=== PATIENT | male | born 1960 | race African-American/Black ===

== ENCOUNTER 2017-09-25 18:50 | Emergency (ER) | payer MEDICARE, MEDICAID ==
[2017-09-25] MEDS ORDERED: Lidocaine 1% PF 5 ML VIAL ONE (19:55)
[2017-09-25] MEDS ORDERED: Cephalexin 250 MG CAP ONE (19:56)
[2017-09-25] MEDS ORDERED: Sulfameth/Trimethoprim DS 800-160mg TAB ONE (19:56)
== END 2017-09-25 20:32 | disposition home or self-care (01) ==
LOC: ERS 18:50
DX: L03.011 Cellulitis of right finger (principal); I10 Essential (primary) hypertension; E11.9 Type 2 diabetes mellitus without complications; E78.5 Hyperlipidemia, unspecified
CPT/HCPCS: 10060; J2001

== ENCOUNTER 2018-10-06 13:40 | Emergency (ER) | payer MEDICARE, MEDICAID ==
[2018-10-06 14:20] LABS: #Eosinphils 0.2 thou/uL (0.0-0.7); #Lymphocytes 1.7 thou/uL (1.20-3.40); #Monocytes 0.5 thou/uL (0.11-0.59); #Neutrophils 2.6 thou/uL (1.40-6.50); %Basophils 0.1 % (0.0-1.0); %Eosinophils 3.9 % (0.0-10.0); %Lymphocytes 33.4 % (21.0-51.0); %Neutrophils 52.6 % (42.0-75.0); Hemoglobin 13.8 g/dL (14.0-18.0); Mean Corpuscular HGB CONC 33.7 g/dL (32.0-36.0); Mean Corpuscular Hemoglobin 25.9 pg (27.0-31.0); Mean Platelet Volume 7.9 fL (7.4-10.4); Platelet Count 232 thou/uL (130-400); Red Blood Cell (RBC) Count 5.32 mill/uL (4.70-6.10)
[2018-10-06 14:42] LABS: ALT (SGPT) 24 U/L (8-55); AST (SGOT) 14 U/L (5-34); Albumin 4.4 g/dL (3.5-5.0); Alkaline Phosphatase 128 U/L (40-150); Anion Gap 13 mmol/L (10-20); BUN (Urea Nitrogen) 19 mg/dL (8.4-25.7); Bilirubin, Total 0.7 mg/dL (0.2-1.2); Calc. Creatinine Clearance 0 mL/min (70-130); Calcium 9.9 mg/dL (7.8-10.44); Carbon Dioxide 27 mmol/L (22-29); Chloride 103 mmol/L (98-107); Estimated GFR-MDRD 66; Glucose 263 mg/dL (70-105); Potassium 4.7 mmol/L (3.5-5.1); Protein, Total 7.4 g/dL (6.0-8.3); Sodium 138 mmol/L (136-145)
== END 2018-10-06 17:44 | disposition home or self-care (01) ==
LOC: ERS 13:40
DX: E11.65 Type 2 diabetes mellitus with hyperglycemia (principal); E78.00 Pure hypercholesterolemia, unspecified; I10 Essential (primary) hypertension; Z79.4 Long term (current) use of insulin; Z79.899 Other long term (current) drug therapy
CPT/HCPCS: 36415; 36416; 80053; 85025; 96360

== ENCOUNTER 2018-10-10 17:00 | Observation (INO) | payer MEDICARE, MEDICAID ==
--- NOTE | 2018-10-10 17:22 | RAD ---
EXAM: Chest one view: HISTORY: Chest pain COMPARISON: 06/21/2012 FINDINGS: Heart size: Within normal limits. The lungs: Clear of acute process. No evidence for pneumonia, pleural effusion, acute edema, or pneumothorax, or other significant acute process. IMPRESSION: No significant acute intrathoracic disease.
[2018-10-10 17:42] LABS: #Eosinphils 0.2 thou/uL (0.0-0.7); #Lymphocytes 1.6 thou/uL (1.20-3.40); #Monocytes 0.5 thou/uL (0.11-0.59); #Neutrophils 2.7 thou/uL (1.40-6.50); %Basophils 0.1 % (0.0-1.0); %Monocytes 9.3 % (0.0-10.0); %Neutrophils 54.5 % (42.0-75.0); Mean Corpuscular HGB CONC 34.3 g/dL (32.0-36.0); Mean Corpuscular Hemoglobin 26.3 pg (27.0-31.0); Mean Corpuscular Volume 76.5 fL (78.0-98.0); Mean Platelet Volume 7.7 fL (7.4-10.4); Platelet Count 243 thou/uL (130-400); Red Blood Cell (RBC) Count 5.31 mill/uL (4.70-6.10)
[2018-10-10 18:11] LABS: ALT (SGPT) 27 U/L (8-55); AST (SGOT) 16 U/L (5-34); Albumin 4.5 g/dL (3.5-5.0); Alkaline Phosphatase 148 U/L (40-150); Anion Gap 13 mmol/L (10-20); BUN (Urea Nitrogen) 19 mg/dL (8.4-25.7); Bilirubin, Total 0.6 mg/dL (0.2-1.2); CK (CPK) 119 U/L (30-200); Calc. Creatinine Clearance 0 mL/min (70-130); Calcium 9.4 mg/dL (7.8-10.44); Carbon Dioxide 24 mmol/L (22-29); Chloride 102 mmol/L (98-107); Estimated GFR-MDRD 68; Globulin 2.7 g/dL (2.4-3.5); Glucose 283 mg/dL (70-105); Lipase 46 U/L (8-78); Potassium 4.4 mmol/L (3.5-5.1); Protein, Total 7.2 g/dL (6.0-8.3); Sodium 135 mmol/L (136-145)
[2018-10-10] MEDS ORDERED: Aspirin Chewable 81 MG TAB ONE (19:06)
[2018-10-10 20:38] VITALS: BMI 27.2
[2018-10-10] MEDS ORDERED: Morphine 2 MG/ML SYRINGE SLOW IVP PRN (20:45)
[2018-10-10 21:52] LABS: Troponin I Less than 0.010 ng/mL (< 0.028)
[2018-10-11 00:10] LABS: Troponin I Less than 0.010 ng/mL (< 0.028)
[2018-10-11] MEDS ORDERED: Ondansetron ODT 4 MG TAB PO PRN (01:02)
[2018-10-11] MEDS ORDERED: Ondansetron PF 4 MG/2 ML Vial IVP PRN (01:02)
[2018-10-11] MEDS ORDERED: HumaLOG 300 UNITS/3 ML VIAL SC PRN ×2 (01:05)
[2018-10-11] MEDS ORDERED: Dextrose 50% Abboject 50 ML SYRINGE SLOW IVP PRN (01:05)
[2018-10-11] MEDS ORDERED: Dextrose 5% in Water 1,000 ML IV PRN (01:05)
[2018-10-11] MEDS: Sodium Chloride 0.9% 1,000 ML IV SCH ×3 (02:15→20:59)
[2018-10-11 04:55] LABS: #Eosinphils 0.2 thou/uL (0.0-0.7); #Lymphocytes 1.6 thou/uL (1.20-3.40); #Monocytes 0.4 thou/uL (0.11-0.59); #Neutrophils 2.1 thou/uL (1.40-6.50); %Basophils 0.9 % (0.0-1.0); %Eosinophils 4.1 % (0.0-10.0); %Lymphocytes 36.6 % (21.0-51.0); %Neutrophils 48.5 % (42.0-75.0); Hemoglobin 13.5 g/dL (14.0-18.0); Mean Corpuscular HGB CONC 33.9 g/dL (32.0-36.0); Mean Corpuscular Volume 76.8 fL (78.0-98.0); Platelet Count 223 thou/uL (130-400); RBC Distribution Width 13.9 % (11.5-14.5); White Blood Cell (WBC) Count 4.3 thou/uL (4.8-10.8)
--- NOTE | 2018-10-11 04:58 | PDOC.EVN ---
Event Note - Event Note Event Note: H&P dictation: [id number]
[2018-10-11 05:17] LABS: Anion Gap 12 mmol/L (10-20); BUN (Urea Nitrogen) 14 mg/dL (8.4-25.7); Calc. Creatinine Clearance 107 mL/min (70-130); Calcium 9.8 mg/dL (7.8-10.44); Carbon Dioxide 27 mmol/L (22-29); Chloride 102 mmol/L (98-107); Cholesterol 151 mg/dl (< 200 Desired); Estimated GFR-MDRD Greater than 90; Glucose 210 mg/dL (70-105); HDL Cholesterol 25 mg/dL (>60 Neg Risk); LDL Cholesterol, Calculated 103 mg/dL; Magnesium 2.3 mg/dL (1.6-2.6); Potassium 4.2 mmol/L (3.5-5.1); Sodium 137 mmol/L (136-145); Triglycerides 117 mg/dL (Less than 150)
--- NOTE | 2018-10-11 06:36 | HP ---
CHIEF COMPLAINT: Chest pain. HISTORY OF PRESENT ILLNESS AND REVIEW OF SYSTEMS: Mr. Duron is a 57-year-old man who is noncommunicative at baseline due to underlying learning disability who presents after complaining of chest pain. According to his sister, she received the call while she was at work from another sister who was with him at home due to him clutching to the left side of his chest. When asked if he was experiencing any pain, he stated yes. Difficulty obtaining history from the patient. He is able to nod yes or shake his head no in response to questions, but sister is not 100% convinced he truly understands or is answering appropriately. Unclear how long the pain lasted, but it may have been anywhere from 2 to 3 hours. Unclear if it is intermittent or the type of pain at once. Per family, when the pain first started, he was having some shortness of breath, but that settled quickly. He has not had any further apparent respiratory distress. At this present time, the patient is resting comfortably in bed and denies any pain. Sister denies any nausea or vomiting. No fevers, chills, or sweats. No apparent abdominal pain. He is moving his bowels as normal and urinating as normal. PAST MEDICAL HISTORY: 1. Underlying learning disability. 2. Type 2 diabetes, on insulin. 3. Hyperlipidemia. 4. Hypertension. PAST SURGICAL HISTORY: None. SOCIAL HISTORY: Patient lives with his sister. No alcohol use, drug use, or tobacco use. ALLERGIES: NO KNOWN DRUG ALLERGIES. CURRENT MEDICATIONS: 1. Gemfibrozil. 2. Nexium. 3. Metoprolol. 4. Humalog. 5. Levemir. PHYSICAL EXAMINATION: GENERAL: Patient appears well developed, well nourished, in no acute distress. VITAL SIGNS: Temperature 98.8, pulse 57, respirations 12, O2 saturation 97% on room air, and blood pressure 121/67. HEENT: Normocephalic and atraumatic. Pupils are equal, round, and reactive to light. Extraocular movements intact. Oropharynx is clear. NECK: Supple. LUNGS: Clear to auscultation bilaterally. CARDIAC: Regular rate and rhythm. ABDOMEN: Obese, nontender, and nondistended. Normoactive bowel sounds present. EXTREMITIES: No lower leg swelling or edema. NEUROLOGIC: Patient is nonverbally communicative at baseline. Able to follow commands. SKIN: No rash or jaundice. LABORATORY DATA: White blood count 5, hemoglobin 14, hematocrit 40.6, and platelets 243. D-dimer negative. Sodium 135, potassium 4.4, BUN 19, creatinine 1.33, GFR 68, and glucose 283. LFTs unremarkable. Lipase normal. Troponin negative x2. Albumin 4.5. IMAGING DATA: Chest x-ray, 10/10/2018. No significant acute intrathoracic disease. IMPRESSION AND PLAN: Mr. Duron is a 57-year-old male who is not communicative at baseline due to underlying learning disability, who has been referred for management of the followin. Chest pain. Difficulty obtaining history given the fact he is not communicative. The patient does not appear to be in any pain at this present time and does deny pain. Continue to trend troponins. We will order a stress test. D-dimer is negative. Continue to monitor. 2. Hypertension. Resume home medications. Monitor blood pressure. 3. Diabetes mellitus. Insulin sliding scale initiated. Continue to monitor glucose. 4. Hyperlipidemia. Resume home medications. 5. Gastrointestinal prophylaxis. 6. Deep venous thrombosis prophylaxis with mechanical SCDs. 7. Code status full. His surrogate decision maker is his sister, Mansi Duron. Patient's case to be discussed with attending for further recommendations. Job ID: [id number]
[2018-10-11] MEDS: Gemfibrozil 600 MG TAB PO SCH ×2 (10:46→16:12)
[2018-10-11] MEDS: Famotidine/PF 20 mg/2ml Vial SLOW IVP SCH ×2 (10:46→20:54)
--- NOTE | 2018-10-11 14:29 | NM ---
NUCLEAR MEDICINE CARDIAC STRESS WITH EJECTION FRACTION AND WALL MOTION: HISTORY: Chest pain. FINDINGS: Patient's EKG had 4 second pauses, as per the nuclear fuels research engineer. Therefore, the examination was t erminated and only rest images were performed. Rest images demonstrate distribution of the radiotracer in the left ventricle. IMPRESSION: Incomplete evaluation due to only rest imaging being performed. The examination was terminated as per the weave defect charting clerk's request. POS: TASH
--- NOTE | 2018-10-11 15:25 | CON ---
DATE OF CONSULTATION: 10/11/2018 REASON FOR CONSULTATION: Bradycardia. HISTORY OF PRESENT ILLNESS: Mr. Duron is a pleasant 57-year-old nonverbal gentleman, who comes to the hospital for chest pain. His sister usually takes care of him who is here with him. He had chest pain and was scheduled to have a stress test earlier this morning. He had an episode of sinus pauses at about 5:00 a.m. this morning of the 4 second pause. Secondary to this, the stress was halted and Cardiology was consulted. Currently, he is pain free. PAST MEDICAL HISTORY: 1. Learning disability. 2. Type 2 diabetes, on insulin. 3. Hyperlipidemia. 4. Hypertension. PAST SURGICAL HISTORY: None. SOCIAL HISTORY: Lives with sister. No alcohol, tobacco, or drugs. ALLERGIES: NO KNOWN DRUG ALLERGIES. OUTPATIENT MEDICATIONS: Include: 1. Insulin detemir, Levemir 20 units subcu b.i.d. 2. Olmesartan 20 mg a day. 3. Gemfibrozil 600 mg b.i.d. 4. Nexium 40 mg a day. 5. Metoprolol succinate 100 mg a day. ALLERGIES: NO KNOWN DRUG ALLERGIES. FAMILY HISTORY: Noncontributory. REVIEW OF SYSTEMS: A 12-point review of systems was done and was all negative unless stated in the history of present illness. PHYSICAL EXAMINATION: VITAL SIGNS: Temperature 98.1, pulse 57, respiratory rate 14, saturating 96% on room air, and blood pressure 119/61. GENERAL: Awake, alert, and oriented x3. No distress. HEENT: Normocephalic atraumatic. NECK: Supple. LUNGS: Clear. CARDIOVASCULAR: S1, S2. No S3 or S4. No murmurs. ABDOMEN: Soft. Positive bowel sounds. EXTREMITIES: No edema. SKIN: Warm and dry. LABORATORY DATA: Laboratory work was reviewed CBC is unremarkable except for hemoglobin of 13.5. Coags: D-dimer is under . Troponin is negative x3. CMP was completely unremarkable. Total cholesterol of 151, triglycerides of 117, LDL of 103, HDL of 25. TSH was normal. EKG was reviewed. ASSESSMENT/PLAN: 1. Bradycardia: This is in the setting of being asleep. This is not significant and not an issue at all. May proceed with stress testing. 2. Chest pain. I agree with risk stratification with stress testing. 3. Further patient. We will follow. Continue beta anna dose. I would cut in half at 50 mg a day as he has baseline bradycardic in the mid 50s. Job ID: [id number]
--- NOTE | 2018-10-11 17:09 | PDOC.PN ---
- Subjective Encounter Start Date: 10/11/18 Encounter Start Time: 09:55 Subjective: pt up in bed denies any chest pain -: sister at bedside updated - Objective Resuscitation Status - Order Detail: 10/11/18 01:02 Resuscitation Status Routine Co-Sign Provider: Resuscitation Status: FULL: Full Resuscitation Vital Signs & Weight: Vital Signs (12 hours) Temp Pulse Resp BP Pulse Ox 10/11/18 15:23 99.2 F 78 16 123/64 96 10/11/18 11:26 98.1 F 57 L 14 119/61 96 10/11/18 08:11 98.2 F 60 14 120/67 97 Weight Weight 201 lb I&O: 10/10/18 10/11/18 10/12/18 06:59 06:59 06:59 Intake Total 500 2 Output Total 600 Balance -100 2 Result Diagrams: 10/11/18 04:11 10/11/18 04:11 Additional Labs: Accuchecks 10/11/18 10/10/18 13:10 17:13 POC Glucose 224 H 279 H Phys Exam - Physical Examination Neck: no nodes, no JVD, supple, full ROM Respiratory: no wheezing, no rales, no rhonchi, wheezing present, clear to auscultation bilateral Cardiovascular: RRR, no significant murmur, no rub, gallop, irregular Gastrointestinal: soft, non-tender, no distention, positive bowel sounds Dx/Plan (1) Chest pain Code(s): R07.9 - CHEST PAIN, UNSPECIFIED Status: Acute (2) Sinus pause Code(s): I45.5 - OTHER SPECIFIED HEART BLOCK Status: Acute - Plan pt had pause last night, BB held -: cardiology consulted -: sister updated * . Review of Systems - Review of Systems Other: unable to perform - Medications/Allergies Allergies/Adverse Reactions: Allergies Allergy/AdvReac Type Severity Reaction Status Date / Time No Known Allergies Allergy Unverified 10/10/18 20:42 Medications: Current Medications Dextrose/Water (Dextrose 50%) 25 gm SLOW IVP PRN PRN PRN Reason: Hypoglycemia Famotidine (Pepcid) 20 mg SLOW IVP Q12HR [facility] Last Admin: 10/11/18 10:46 Dose: 20 mg Gemfibrozil (Lopid) 600 mg PO BIDAC [facility] Last Admin: 10/11/18 16:12 Dose: 600 mg Glucagon (Glucagon) 1 mg IM PRN PRN PRN Reason: Hypoglycemia Sodium Chloride (Normal Saline 0.9%) 1,000 mls @ 65 mls/hr IV .[id number] [facility] Last Admin: 10/11/18 02:15 Dose: 1,000 mls Dextrose/Water (D5w) 1,000 mls @ 0 mls/hr IV .Q0M PRN PRN Reason: Hypoglycemia Insulin Human Lispro (Humalog) 0 units SC .MODERATE SLIDING SC PRN PRN Reason: Moderate Correctional Scale Insulin Human Lispro (Humalog) 0 units SC .BEDTIME SLIDING SC PRN PRN Reason: Bedtime Correctional Scale Olmesartan (Benicar) 20 mg PO DAILY [facility] Last Admin: 10/11/18 10:45 Dose: 20 mg Ondansetron HCl (Zofran Odt) 4 mg PO Q6H PRN PRN Reason: Nausea/Vomiting Ondansetron HCl (Zofran) 4 mg IVP Q6H PRN PRN Reason: Nausea/Vomiting Pantoprazole Sodium (Protonix) 40 mg PO DAILY [facility] Last Admin: 10/11/18 10:46 Dose: 40 mg Sodium Chloride (Flush - Normal Saline) 10 ml IVF Q12HR [facility] Last Admin: 10/11/18 10:46 Dose: 10 ml Sodium Chloride (Flush - Normal Saline) 10 ml IVF PRN PRN PRN Reason: Saline Flush
[2018-10-11] MEDS: Insulin Glargine 15 UNITS in Pre-Filled Syringe 1 EACH SC SCH (20:55)
[2018-10-12] MEDS: Gemfibrozil 600 MG TAB PO SCH (07:27)
[2018-10-12] MEDS: Famotidine/PF 20 mg/2ml Vial SLOW IVP SCH (08:36)
[2018-10-12] MEDS: Sodium Chloride 0.9% 1,000 ML IV SCH (08:37)
[2018-10-12] MEDS: Insulin Glargine 15 UNITS in Pre-Filled Syringe 1 EACH SC SCH (09:57)
[2018-10-12] MEDS ORDERED: Regadenoson 0.4 MG/5 ML SYRINGE ONE (12:49)
--- NOTE | 2018-10-12 13:13 | PDOC.CTH ---
Cardiology Progress Note - Subjective No more chest pain. Awaiting stress results. - Objective Vital Signs Temp Pulse Resp BP BP BP Pulse Ox 10/12/18 13:00 98.5 F 88 18 116/64 10/12/18 08:05 99.2 F 72 16 124/62 98 10/12/18 07:30 99.2 F 72 16 124/62 98 10/12/18 05:00 98.1 F 68 18 103/52 L 98 Weight 201 lb 10/11/18 10/12/18 10/13/18 06:59 06:59 06:59 Intake Total 500 1882 Output Total 600 1200 Balance -100 682 - Physical Examination General/Neuro: NAD Neck: no JVD present Lungs: CTA, unlabored respirations Heart: RRR Abdomen: NT/ND Extremities: other: (no edema) - Telemetry Telemetry Rhythm: NSR - Labs Result Diagrams: 10/11/18 04:11 10/11/18 04:11 Troponin/CKMB Troponin I Less than 0.010 ng/mL (< 0.028) 10/10/18 23:35 - Assessment/Plan 1. Chest pain 2. Bradycardia while sleeping, not significant. PLAN: - Disposition pending results of stress testing.
--- NOTE | 2018-10-12 14:15 | NM ---
NUCLEAR MEDICINE CARDIAC STRESS WITH EJECTION FRACTION AND WALL MOTION: HISTORY: Chest pain. ADDENDUM: The stress images are now made available. TECHNIQUE: Rest images were performed with 10.20 mCi of technetium-99m sestamibi. Stress images were performed w ith 30 mCi of technetium-99m sestamibi. FINDINGS: There does appear to be a fixed defect involving the basal septum. No evidence of reversibility. TID is 0.77. End-diastolic volume is 65 mL. End-systolic volume is 27 mL. CARDIAC GATING: Normal motion and thickening. 58% ejection fraction. IMPRESSION: 1. No evidence of reversibility. 2. Fixed defect involving the basal septum. 3. 58% ejection fraction. POS: DELFINO
[2018-10-12 15:37] VITALS: BP 110/79; TEMP 98.3
--- NOTE | 2018-10-13 00:46 | DIS ---
DATE OF ADMISSION: 10/10/2018 DATE OF DISCHARGE: 10/12/2018 DISCHARGE DIAGNOSES: 1. Chest pain. 2. Sinus pause. 3. Diabetes. HOSPITAL COURSE: The patient is a 57-year-old male, who presents to the hospital initially with complaints of chest pain. The patient lives with his family. He has a little bit of mental slowing. At this time, he did have troponin x3, which were negative. He was found to have a 2 to 3-second pause and he was found to be on a beta anna of 100 mg daily. At this time, his beta anna was stopped and Cardiology was consulted. Cardiology recommended starting the beta anna half the dose and also the stress test was negative. The stress test indicated an EF of 50% with fixed defect involving the posterior septum. No evidence of reversibility was noted. The patient again feels well. He will be discharged home, follow up with his primary care doctor. HOME MEDICATIONS: 1. Metoprolol succinate 50 mg daily. 2. Nexium 40 mg daily. 3. Gemfibrozil 600 mg b.i.d. 4. Olmesartan 20 mg daily. 5. Insulin 20 units b.i.d. PHYSICAL EXAMINATION: VITAL SIGNS: 98.5, 88, 18, 116/64. GENERAL: He is awake, alert, and oriented x3. Does not appear in distress. CV: S1 and S2 present. No murmurs, rubs, or gallops. ABDOMEN: Soft, nontender. Bowel sounds are present x2. EXTREMITIES: No edema. Again, he will be discharged home. He will follow up with his primary care doctor. Job ID: [id number]
== END 2018-10-12 16:21 | disposition home or self-care (01) ==
LOC: ERS 17:00 → 2SW 20:36
PROVIDERS: ADMIT Internal Medicine; ATTEND Internal Medicine
DX: R07.9 Chest pain, unspecified (principal); I45.5 Other specified heart block; R00.1 Bradycardia, unspecified; E11.9 Type 2 diabetes mellitus without complications; E78.5 Hyperlipidemia, unspecified; I10 Essential (primary) hypertension; F79 Unspecified intellectual disabilities; Z79.4 Long term (current) use of insulin; Z79.899 Other long term (current) drug therapy
CPT/HCPCS: 71045; 78452 ×2; 80048; 80053; 80061; 82550; 82962 ×3; 83690; 83735; 84443; 84484 ×2; 85025 ×2; 85379; 93005; 93017; 96361 ×2; 96374; 96376 ×2; 97139 ×2; 99285; A9500 ×2; G0378 ×2; 36415; 36416; J1815; J2785; S0028

== ENCOUNTER 2022-05-20 19:01 | Emergency (ER) | payer MEDICARE, MEDICAID ==
[2022-05-20 20:57] LABS: Phosphorus 2.8 mg/dL (2.3-4.7)
[2022-05-20 21:00] LABS: #Eosinphils 0.2 thou/uL (0.0-0.7); #Lymphocytes 1.4 thou/uL (1.20-3.40); #Monocytes 0.4 thou/uL (0.11-0.59); #Neutrophils 2.5 thou/uL (1.40-6.50); %Basophils 0.2 % (0.0-1.0); %Eosinophils 3.6 % (0.0-10.0); %Lymphocytes 30.6 % (21.0-51.0); %Monocytes 8.4 % (0.0-10.0); %Neutrophils 57.2 % (42.0-75.0); Hemoglobin 15.3 g/dL (14.0-18.0); Mean Corpuscular HGB CONC 35.1 g/dL (32.0-36.0); Mean Corpuscular Hemoglobin 26.5 pg (27.0-31.0); Mean Corpuscular Volume 75.5 fl (78.0-98.0); Mean Platelet Volume 9.2 fL (7.4-10.4); Platelet Count 228 10x3/uL (130-400); RBC Distribution Width 13.4 % (11.5-14.5); Red Blood Cell (RBC) Count 5.78 mill/uL (4.70-6.10); White Blood Cell (WBC) Count 4.4 10x3/uL (4.8-10.8)
[2022-05-20 21:04] LABS: ALT (SGPT) 24 U/L (8-55); AST (SGOT) 13 U/L (5-34); Albumin 4.8 g/dL (3.5-5.0); Alkaline Phosphatase 135 U/L (40-110); Anion Gap 16 mmol/L (10-20); BUN (Urea Nitrogen) 26 mg/dL (8.4-25.7); Bilirubin, Total 0.6 mg/dL (0.2-1.2); Calc. Creatinine Clearance 0 mL/min (70-130); Calcium 10.1 mg/dL (7.8-10.44); Carbon Dioxide 22 mmol/L (22-29); Chloride 99 mmol/L (98-107); Estimated GFR 48; Globulin 3.2 g/dL (2.4-3.5); Magnesium 2.4 mg/dL (1.6-2.6); Potassium 4.8 mmol/L (3.5-5.1); Sodium 132 mmol/L (136-145)
[2022-05-20] MEDS ORDERED: Aspirin Chewable 81 MG TAB ONE (21:07)
[2022-05-20 21:15] LABS: Glucose 524 mg/dL (70-105)
[2022-05-20 21:29] LABS: Bilirubin Negative (Negative); Blood, Urine Negative (Negative); Clarity Clear (Clear); Glucose, Urine (Dipstick) Greater than 1000 mg/dL (Negative); Ketone, Urine Trace mg/dL (Negative); Leukocyte Negative Leu/uL (Negative); Nitrite Negative (Negative); Protein, Urine (Dipstick) Negative (Neg-Trace); Specific Gravity, Urine 1.025 (1.002-1.036); Urobilinogen Normal mg/dL (Less than 2); pH, Urine 5.5 (5.0-9.0)
[2022-05-20] MEDS ORDERED: Insulin Regular 300 UNITS/3 ML VIAL ONE (22:05)
[2022-05-20 22:37] LABS: Actual Bicarbonate (HCO3v) 23 mEq/L (22-28); Analyzer IN Cardio ER; Base Excess -2.6 mEq/L (-2.0 to +3.0); Calcium, Ionized (venous) 1.14 mmol/L (1.16-1.32); Chloride (VBG) 104 mmol/L (98-106); Potassium (VBG) 3.65 mmol/L (3.70-5.30); pH (venous) 7.35 (7.32-7.43)
== END 2022-05-21 01:21 | disposition home or self-care (01) ==
LOC: ERS 19:01
DX: E11.65 Type 2 diabetes mellitus with hyperglycemia (principal); R07.9 Chest pain, unspecified; D72.829 Elevated white blood cell count, unspecified; E11.9 Type 2 diabetes mellitus without complications; E78.00 Pure hypercholesterolemia, unspecified; I10 Essential (primary) hypertension; Z79.4 Long term (current) use of insulin
CPT/HCPCS: 36415; 36416; 71045; 80053; 81003; 82010; 82805; 83735; 83880; 84100; 84484; 85025; 93005; 96361; 96374; J1815